=== PATIENT | female | born 1980 | race Two or more races ===

== ENCOUNTER 2018-01-13 01:03 | Emergency (ER) | payer MEDICAID ==
[~2018-01-13] VITALS: Ht 167.6 cm; Wt 63.5 kg
[2018-01-13] MEDS ORDERED: Lidocaine 2% Visc 15ml soln ORAL ONE (01:30)
[2018-01-13 01:55] VITALS: BP 98/55
[2018-01-13] MEDS ORDERED: IBUPROFEN600 MG ORAL (02:15)
[2018-01-13 02:28] VITALS: BP 98/55
--- NOTE | 2018-01-13 04:07 | Emergency Room Report ---
History of Present Illness General Chief Complaint: Earache Source: Patient Present Illness HPI 37-year-old female presents ED c/o pain to L ear. states she thinks there is a cockroach inside her ear since last night. Pain is throbbing, 8 out of 10, nonradiating. States she feels something moving inside her ear. No other aggravating relieving factors. Denies any other associated symptoms Allergies: Coded Allergies: No Known Allergies (Unverified , 01/13/18) Patient History Past Medical History: none Past Surgical History: none Pertinent Family History: none Social History: Denies: smoking, alcohol use, drug use Last Menstrual Period: January Now: No Immunizations: UTD Reviewed Nursing Documentation: PMH: Agreed; PSxH: Agreed Nursing Documentation-PMH Past Medical History: No Stated History Review of Systems All Other Systems: negative except mentioned in HPI Physical Exam Vital Signs Date Time Temp Pulse Resp B/P (MAP) Pulse Ox O2 Delivery O2 Flow Rate FiO2 01/13/18 01:17 98.6 72 16 98/55 98 Room Air 98.6 Sp02 EP Interpretation: reviewed, normal General Appearance: no apparent distress, alert, GCS 15, non-toxic Head: normocephalic Eyes: bilateral eye normal inspection, bilateral eye PERRL ENT: other - moving cockroach in L ear canal Neck: normal inspection Respiratory: normal inspection Cardiovascular #1: normal inspection Gastrointestinal: normal inspection Rectal: deferred Genitourinary: no CVA tenderness Musculoskeletal: normal inspection Neurologic: alert, oriented x3, responsive, motor strength/tone normal, sensory intact, speech normal Psychiatric: normal inspection Skin: normal inspection Lymphatic: normal inspection Procedures Additional Procedure Procedure Narrative Ear foreign body removal: Patient placed in the decubitus position on stretcher. Using otoscope I was able to visualize the foreign body in the ear canal. Using alligator forceps under direct visualization I am able to successfully remove the foreign body. Repeat otoscope visualization confirms foreign body is removed Medical Decision Making Diagnostic Impression: Primary Impression: Foreign body in ear Qualified Codes: T16.2XXA - Foreign body in left ear, initial encounter ER Course 37 yo F presents to ED c/o sensation of foreign body in L ear Differential-foreign body, otitis media, otitis externa Patient placed on stretcher. After initial history, physical exam reveals female in no acute distress. On otoscopic exam there is evidence of an insect in the L ear canal. viscous lidocaine injected into ear canal. Using alligator forceps I am able to remove the insect with without complication. On repeat otoscopic exam no evidence of foreign body. Discussed findings with patient. Patient is safe for discharge given motriin in ED Diagnosis-foreign body in ear Stable discharged to home. Followup with PMD. Return to ED if symptoms recur or worsen Last Vital Signs Date Time Temp Pulse Resp B/P (MAP) Pulse Ox O2 Delivery O2 Flow Rate FiO2 01/13/18 02:28 98.6 72 16 98/55 98 Room Air Status: improved Disposition: HOME, SELF-CARE Condition: Stable Scripts Ibuprofen* (MOTRIN*) 600 Mg Tablet 600 MG ORAL Q8H PRN for For Pain, #30 TAB 0 Refills Prov: Anibal Oneill MD 01/13/18 Patient Instructions: Ear Foreign Body, [id number] Anibal Oneill MD January 13, 2018 04:07
== END 2018-01-13 02:39 | disposition home or self-care (01) ==
LOC: EMR 01:30
DX: T16.2XXA Foreign body in left ear, initial encounter (principal); X58.XXXA Exposure to other specified factors, initial encounter; Y92.9 Unspecified place or not applicable
CPT/HCPCS: 99284